=== PATIENT | female | born 1940 | race Caucasian/White ===

== ENCOUNTER 2017-12-29 06:25 | Day surgery (SDC) | payer MEDICARE, OTHER ==
[~2017-12-29] VITALS: Ht 165.1 cm; Wt 70.6 kg
[~2017-12-29 06:25] MED LIST: ALEN70TA47 PO; ASPI-586 PO; ATOR10TA66 PO; CALC600T12 PO; CARV3.122 PO
[2017-12-29] MEDS ORDERED: ceFAZolin 1,000 MG (ANCEF) VIAL ONE (06:54)
[2017-12-29] MEDS ORDERED: NS (IVPB) 50 ML ONE (06:55)
[2017-12-29] MEDS ORDERED: ceFAZolin INJECTION 1,000 MG in NS (IVPB) 100 ML IV ONE (07:00)
[2017-12-29] MEDS ORDERED: fentaNYL INJECTION 100 MCG/2 ML AMP ONE (07:01)
[2017-12-29] MEDS ORDERED: proPOfol 200 MG/20 ML (DIPRIVAN) VIAL IV ONE (07:01)
[2017-12-29] MEDS ORDERED: SEVOFLURANE (ULTANE) 15 ML INHAL SOLN ONE ×8 (07:01→09:28)
[2017-12-29] MEDS ORDERED: LIDOCAINE PF 2% 5 ML (XYLOCAINE) VIAL ONE (07:01)
[2017-12-29] MEDS ORDERED: MIDAZOLAM 2 MG/2 ML (VERSED) VIAL ONE (07:01)
[2017-12-29] MEDS ORDERED: ONDANSETRON 4 MG/2 ML (SDV) Z0FRAN ONE (07:01)
[2017-12-29] MEDS ORDERED: DEXAMETHASONE 10 MG/ML (DECADRON) 1 ML VIAL ONE (07:18)
[2017-12-29] MEDS ORDERED: BUPIVACAINE 0.5% 30 ML (SENSORCAINE) VIAL ONE (07:18)
[2017-12-29] MEDS: LACTATED RINGERS 1,000 ML IV PRN ×2 (07:30→08:15)
[2017-12-29 07:35] VITALS: BP 149/96
--- NOTE | 2017-12-29 07:36 | Progress Note-Pre Operative ---
Pre-Operative Progress Note H&P Reviewed The H&P was reviewed, patient examined and no changes noted. 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
[2017-12-29] MEDS ORDERED: LACTATED RINGERS 1,000 ML IV SCH (09:41)
--- NOTE | 2017-12-29 09:41 | Progress Note-Post Operative ---
Post-Operative Progess Note Surgeon (s)/Gate Services Supervisor (s) Surgeon MARCUS PADILLA DPM Gate Services Supervisor: none Pre-Operative Diagnosis Hallux Rigidus, Hypertrophic 2nd Metatarsal, Hammertoe 2nd, all Right Post-Operative Diagnosis same Procedure & Operative Findings Date of Procedure 12/29/17 Procedure Performed/Findings Arthrodesis of the 1st MTPJ, Reduction of 2nd digit hammertoe, 2nd metatarsal osteotomy, all right foot Anesthesia Type general Estimated Blood Loss Estimated blood loss (mL): minimal Specimens/Packing Specimens Removed none MARCUS PADILLA DPM December 29, 2017 9:41 am
[2017-12-29] MEDS ORDERED: ACHD5005 PO (09:44)
[2017-12-29] MEDS ORDERED: CEPH500C PO (09:44)
[2017-12-29] MEDS ORDERED: HYDROcodone/APAP 5 MG/325 MG (LORTAB) TAB PO PRN (09:45)
[2017-12-29 10:37] VITALS: BP 138/73
--- NOTE | 2017-12-29 11:05 | Diagnostic Imaging Report ---
INDICATION: Postop right foot. TIME OF EXAM: 10:11 AM FINDINGS: 2 views of the right foot demonstrate a plate and screw transfixing the first MTP joint. There is a K wire extending through the second toe. Tiny screw transfixes the distal second metatarsal. Hardware and alignment appear normal. IMPRESSION: Postop changes of the right foot, as described. Dictated by: Dictated on workstation # [id number]
[2017-12-29 11:07] VITALS: BP 135/81
--- NOTE | 2017-12-29 11:21 | Anesthesia-General Post-Op ---
General Patient Condition Mental Status/LOC: Same as Preop Cardiovascular: Satisfactory Nausea/Vomiting: Absent Respiratory: Satisfactory Pain: Controlled Complications: Absent Post Op Complications Complications None Follow Up Care/Instructions Patient Instructions None needed. Anesthesia/Patient Condition Patient Condition Patient is doing well, no complaints, stable vital signs, no apparent adverse anesthesia problems. No complications reported per nursing. D/C home per [facility] Criteria: No NATASHA ANDREWS CRNA December 29, 2017 11:21
[2017-12-29 11:37] VITALS: BP 142/86
--- NOTE | 2017-12-29 12:31 | Physical Therapy Ortho Eval ---
PT Orthopedic Evaluation Type of Surgery hallux valgus repair Prior Level of Function Current Living Status: Spouse Locomotion (Upon Admit): Independent Subjective Subjective Agrees to PT. reports she used a FWW after a TKR Entry Into Home: Stairs Without Railing (1 step without railing or 2 steps in garage with railing) Motor Control Motor Control: Motor Control WNL ROM ROM: WFL Strength Strength: WFL Transfer Transfers (B, C, W/C) (FIM): 5 (mod indep post treatment) Gait Gait Assistive Device: FWW Right Lower Extremity: Right Weight Bearing Status RLE: Partial Weight Bearing Left Lower Extremity: Left Weight Bearing Status LLE: Full Weight Bearing Gait (FIM): 5 (6 post treatment) Distance (FIM): 3=150 ft Summary/Comments PWB right LE; pt instructed in WB precaution and demosntrated correct performanc.e Treatment Rendered Treatment: Gait Train, Step Train Assessment/Goals Goal Time Frame: 1 Visit Safe Ambulation: Yes Plan Treatment Plan: Discharge Treatment Duration: 1 visit PT/Family Agrees to Plan: Yes Time Time In: 1045 Time Out: 1100 Total Billed Treatment Time: 15 Billed Treatment Time visit EVL 15 Yes PT/OT Therapy GCodes Therapy Functional Limitation: Physical Therapy Test(s)/Tool used to determine: Level of Assistance Scale Functional Limitation-Current Charge Code: MOBCUR Modifier: CJ (SBa with gait and transfers) Functional Limitation-Goal Charge Code: MOBGOAL Modifier: CI (Mod indep with gait and transfers) Functional Limitation-D/C Charge Codes: MOBDC Modifier: CI (mod indep with gait and transfers) SRIKANTH DONALDSON PT December 29, 2017 12:31
--- NOTE | 2017-12-29 15:12 | OPERATIVE REPORT ---
DATE OF SERVICE: SURGEON: Tiera Curtis DPM. PREOPERATIVE DIAGNOSES: 1. Hallux rigidus, right. 2. Hypertrophic second metatarsal, right. 3. Hammer digit syndrome, right second digit. POSTOPERATIVE DIAGNOSES: 1. Hallux rigidus, right. 2. Hypertrophic second metatarsal, right. 3. Hammer digit syndrome, right second digit. PROCEDURES: 1. Arthrodesis, right first metatarsophalangeal joint. 2. Second digit hammertoe reduction, right. 3. Second metatarsal osteotomy with screw fixation, right. WOUND CLASS: Clean. ANESTHESIA: General. HEMOSTASIS: Pneumatic thigh tourniquet at 250 mmHg. INDICATIONS: This is a 77-year-old female who presents complaining of a painful right foot. Conservative therapy has met with unsatisfactory result and the patient is agreeable to surgical intervention after risks and complications were discussed at length. No guarantees were extended to the patient and she is willing to proceed. DESCRIPTION OF PROCEDURE: The patient was brought back to the operating table, placed in a secure supine position. Appropriate time out was performed. A general anesthetic was then induced. A pneumatic thigh tourniquet was placed on the right lower extremity over several layers of padding. The right foot was then prepped and draped in normal sterile manner after the right foot was anesthetized with 10 mL of 0.5% Marcaine in a Palomo block as well as a digital block to the distal second ray with aseptic technique. Once the right foot was prepped and draped in normal sterile manner, the tourniquet was inflated to 250 mmHg. Attention was then directed to the dorsal aspect of the right first metatarsophalangeal joint where a 5 cm longitudinal linear incision was created. The incision was deepened in the same plane with great care to identify and retract all vital neurovascular structures. All the necessary blood vessels were cauterized as encountered. The incision was deepened down to the capsular tissue where a longitudinal capsulotomy was performed. The capsule tissue was reflected exposing the excessive amount of spurring to the dorsal, medial and lateral aspect of the first metatarsophalangeal joint. The base of the proximal phalanx, spurring was reduced with a rongeur. The dorsal, medial and lateral eminence to the head of the first metatarsal was reduced with a power sagittal saw. Next, utilizing instrumentation for the [email or web address] surgical equipment, a cup and cone was used to shape the head of the first metatarsal as well as the base of the proximal phalanx. The wound was flushed with copious amounts of normal saline. Fenestration was performed to the first metatarsal head as well as the base of the proximal phalanx. Next, utilizing a [employer] plating system, a right first metatarsophalangeal joint plate was used just find as a stepped MPJ VLC Gridlock Plate after which 6 screws were applied, which were 2.4 mm. The distal 3 were 12, 16 and 20 mm of length. The nonlocking most proximal screw was used for compression and it was of 18 mm of length. The 2 remaining proximal screws were 18 and 20 mm of length. Excellent bony apposition and fixation was appreciated at this time as well as alignment of the right hallux. The wound was flushed once again after which closure was performed in layers. Deep closure was performed with 3-0 Vicryl, superficial with 4-0 Vicryl, skin closure with 4-0 Prolene in a horizontal mattress type stitch. Attention was then directed to the dorsal aspect of the right second metatarsal and phalanges. A 6 cm longitudinal linear incision was created from the metatarsal surgical neck to the distal interphalangeal joint of the toe. The incision was deepened in the same plane with great care to identify and retract all vital neurovascular structures. All the necessary blood vessels were cauterized as encountered. The extensor tendon was lengthened utilizing a Z slide procedure overlying the proximal phalanx. The extensor tendon was then released to the dorsal aspect of the second metatarsophalangeal joint and the extensor bynum released. A dorsal capsulorrhaphy to the second metatarsophalangeal joint was performed as well as release of the medial and lateral collateral ligaments. The hypertrophic second head was identified and osteotomy was performed from dorsal to plantar in a distal lateral to proximal medial orientation allowing the head of the second metatarsal to migrate proximally and medially. The head was then secured in its new position utilizing a 2.0 snap-off screw of 14 mm of length driven from distal medial to proximal lateral. Excellent range of motion and realignment of the second digit was appreciated at this time. The wound was flushed with copious amounts of normal saline. Attention was then directed to the right second digit where an arthrodesis was performed to the proximal interphalangeal joint. The head of the proximal phalanx was shaped into a head with a power sagittal saw and power yani and a hole was created to the base of the middle phalanx with a power yani. A 0.054 K wire was driven down the toe securing the osteotomy and arthrodesis site in a closed position in rectus alignment. The excess K wire was cut and a protective ball placed over the end of the wire. Excellent bony apposition and fixation was appreciated at this time. The wound was then flushed and closed in layers. Deep closure was performed with 3-0 Vicryl, superficial with 2-0 Vicryl, skin closed with 4-0 Prolene in a horizontal mattress type stitch. Postoperative injection consisted of 10 mL of 0.5% Marcaine injected in a local infused to the surgical site. Postoperative dressing consisted of Betadine soaked Adaptic, sterile 4 x 4, sterile Kerlix, all secured with a Coban wrap. The patient tolerated the anesthesia and procedure well, and was transported from the operating room to the recovery area with vital signs stable and vascular status intact to all digits of the right foot. She is to follow up in my office in 10 days' period of time or sooner if necessary. She was given prescription for Keflex as well as Vicodin postoperatively. Job ID: [id number] DocumentID: [id number] Dictated Date: 12/29/2017 09:52:50 Staffing Assistant Date: 12/29/2017 15:11:03 Dictated By: MOO LIN
== END 2017-12-29 11:37 | disposition home or self-care (01) ==
LOC: SDC 06:25
PROVIDERS: ATTEND Podiatrist Foot & Ankle Surgery
DX: M20.21 Hallux rigidus, right foot (principal); M89.371 Hypertrophy of bone, right ankle and foot; M20.41 Other hammer toe(s) (acquired), right foot; I25.10 Atherosclerotic heart disease of native coronary artery without angina pectoris; Z98.61 Coronary angioplasty status; M81.0 Age-related osteoporosis without current pathological fracture; Z96.659 Presence of unspecified artificial knee joint; I10 Essential (primary) hypertension; E78.5 Hyperlipidemia, unspecified; Z79.82 Long term (current) use of aspirin; Z79.899 Other long term (current) drug therapy
CPT/HCPCS: 73620